=== PATIENT | female | born 1995 | race Caucasian/White ===

== ENCOUNTER 2017-05-11 19:51 | Emergency (ER) | payer OTHER ==
[~2017-05-11] VITALS: Ht 157.5 cm; Wt 86.2 kg
--- NOTE | 2017-05-11 20:00 | NUR ---
PRESENTS SELF TO ED C/O LOWER ABDOMINAL PAIN, ACHING,, 710, NON RADIATING X 3 DAYS, -N/V/D. SKIN IS WARM TO TOUCH AND NON DIAPHORETIC. AFEBRILE. VSS
--- NOTE | 2017-05-11 20:32 | NUR ---
MD BOWSER AT
[2017-05-11 20:46] LABS: APPEARANCE,URINE CLEAR (CLEAR); BILIRUBIN,URINE NEGATIVE (NEGATIVE); BLOOD, URINE TRACE-INTA Ery/uL (NEGATIVE); COLOR,URINE YELLOW (YELLOW); KETONES,URINE NEGATIVE (NEGATIVE); LEUKOCYTE ESTERASE ,URINE NEGATIVE (NEGATIVE); NITRITE, URINE POSITIVE (NEGATIVE); PROTEIN,URINE NEGATIVE (NEGATIVE); UGLUCOSE NEGATIVE (NEGATIVE); UROBILINOGEN,URINE 0.2 EU/dL (0.2)
[2017-05-11 21:13] LABS: BACTERIA,URINE 3+ /HPF (None Seen); RBC,URINE 0-2 /HPF (0-2); WBC,URINE 0-2 /HPF (0-3)
[2017-05-12] MEDS ORDERED: HYDROCODONE/APAP 5/325MG 1 EACH TABLET ONE (02:28)
[2017-05-12] MEDS ORDERED: HYDROCODONE/APAP 5/325MG 1 EACH TABLET PO ONE (02:30)
[2017-05-12 02:39] VITALS: BP 139/84
--- NOTE | 2017-05-12 02:39 | NUR ---
Patient discharged to home in stable condition. Written and verbal after care instructions given. Patient verbalizes understanding of instruction. Patient is ambulatory with a steady gait, accompanied by boyfriend. Instructed not to drive. No further complaints.
== END 2017-05-12 02:40 | disposition home or self-care (01) ==
LOC: ER 19:53
DX: R10.2 Pelvic and perineal pain (principal)
CPT/HCPCS: 72170; 76856; 81001; 84703; 87077; 87086; 87186; 99285; A4606; Z7610; 81000-TC